=== PATIENT | male | born 2000 | race Caucasian/White ===

== ENCOUNTER 2022-06-01 19:55 | Emergency (ER) | payer SELFPAY ==
[2022-06-01] MEDS ORDERED: cefTRIAXone\\ROCEPHIN 500 MG VIAL ONE (20:36)
[2022-06-01] MEDS ORDERED: Lidocaine 1% PF 5 ML VIAL ONE (20:37)
[2022-06-01] MEDS ORDERED: Lidocaine 1% MPF 2 ML VIAL ONE (20:40)
[2022-06-01 20:47] LABS: Bacteria/HPF None Seen HPF (None Seen); Bilirubin 1+ (Negative); Blood, Urine Negative (Negative); Clarity Turbid (Clear); Glucose, Urine (Dipstick) Normal (Negative); Ketone, Urine Trace mg/dL (Negative); Leukocyte 500 Leu/uL (Negative); Mucous/LPF 1+ LPF (<2+); Nitrite Negative (Negative); Protein, Urine (Dipstick) 30 mg/dL (Neg-Trace); RBC/HPF 0-3 HPF (0-3); Specific Gravity, Urine 1.039 (1.002-1.036); Squamous Epithelial None Seen HPF (0-3); Urobilinogen 3 mg/dL (Less than 2)
[2022-06-01 20:48] LABS: Calcium Oxalate Crystals Rare HPF (None Seen)
[2022-06-02 11:17] LABS: Chlam.trachomatis by PCR,Urine Not Detected (NotDetected)
== END 2022-06-01 20:47 | disposition home or self-care (01) ==
LOC: ERS 19:55
DX: N34.2 Other urethritis (principal)
CPT/HCPCS: 81003; 81015; 87491; 87591; 96372; 99283; J0696